=== PATIENT | male | born 1965 | race Caucasian/White ===

== ENCOUNTER 2018-02-20 08:12 | Emergency (ER) | payer OTHER ==
--- NOTE | 2018-02-20 08:50 | ERPHSYRPT ---
- History of Present Illness Time Seen by Provider: 02/20/18 08:35 Historian: patient Exam Limitations: no limitations Patient Subjective Stated Complaint: pt here chest pain off and on since tuesday after going to dentist, no pain at present time, no sob or cough Triage Nursing Assessment: pt walked in , resp easy, skin w/d/p, chest clear, no edema noted, Physician History: 52 y/o obese white male with htn and elevated cholesterol presents with intermittent chest pain described as pressue in a horizontal band of cp and into base of tongue for 6 days. he has no cp now. stopped at 0430 this am. no soa. no asa or ntg taken Timing/Duration: day(s) (6), intermittent Activities at Onset: none Quality: pressure Location: central Chest Pain Radiation: neck Severity of Pain-Max: mild Severity of Pain-Current: none Associated Symptoms: denies symptoms, No nausea, No vomiting, No palpitations, No heartburn, No abdominal pain, No shortness of breath, No cough Prior Chest Pain/Cardiac Workup: no prior cardiac workup Nitro Today/Relief: no nitro taken today Aspirin Treatment Today: no aspirin today, provided by ED Allergies/Adverse Reactions: No Known Drug Allergies Allergy (Unverified 07/10/14 23:07) Home Medications: Alprazolam 1 mg [Xanax 1 mg] 1 mg PO TID 02/20/18 [History] Cyclobenzaprine HCl 10 mg [Cyclobenzaprine 10 MG] 10 mg PO BID PRN [History] Esomeprazole Sodium [Nexium I.v] 40 mg PO DAILY 02/20/18 [History] Levothyroxine Sodium 88 Mcg [Synthroid 88 Mcg] 88 mcg PO DAILY 02/20/18 [ History] Lisinopril 10 mg [Zestril 10 MG] 10 mg PO DAILY 02/20/18 [History] Metoprolol Succinate 50 mg [Toprol Xl 50 MG] 50 mg PO BID 02/20/18 [ History] Naproxen 500 mg [Naprosyn 500 MG] 500 mg PO BIDPRN PRN 02/20/18 [History] Prazosin HCl [Minipress] 2 mg PO HS 02/20/18 [History] Quetiapine Fumarate [Seroquel] 50 mg PO DAILY 02/20/18 [History] Tamsulosin HCl 0.4 mg [Flomax 0.4 MG] 0.4 mg PO DAILY 02/20/18 [History] Hx Tetanus, Diphtheria Vaccination/Date Given: No Hx Influenza Vaccination/Date Given: Yes Hx Pneumococcal Vaccination/Date Given: No Immunizations Up to Date: No - Review of Systems Constitutional: No Symptoms Eyes: No Symptoms Ears, Nose, & Throat: No Symptoms Respiratory: No Symptoms Cardiac: Chest Pain Abdominal/Gastrointestinal: No Symptoms, No Abdominal Pain, No Nausea, No Vomiting, No Diarrhea Genitourinary Symptoms: No Symptoms, No Dysuria, No Frequency, No Hematuria Musculoskeletal: No Symptoms Skin: No Symptoms Neurological: No Symptoms Psychological: No Symptoms Endocrine: No Symptoms Hematologic/Lymphatic: No Symptoms Immunological/Allergic: No Symptoms All Other Systems: Reviewed and Negative - Past Medical History Pertinent Past Medical History: Yes Neurological History: No Pertinent History ENT History: No Pertinent History Cardiac History: Hypertension Respiratory History: No Pertinent History Endocrine Medical History: Hypothyroidism Musculoskeletal History: No Pertinent History GI Medical History: No Pertinent History History: Other Psycho-Social History: Anxiety, Depression, Panic Disorder Male Reproductive Disorders: No Pertinent History, Prostate Problems Other Medical History: SEE ABOVE - Past Surgical History Past Surgical History: Yes Neuro Surgical History: No Pertinent History Cardiac: No Pertinent History Respiratory: No Pertinent History Gastrointestinal: No Pertinent History Genitourinary: No Pertinent History Musculoskeletal: No Pertinent History Male Surgical History: No Pertinent History Other Surgical History: cyst from back - Social History Smoking Status: Former smoker Exposure to second hand smoke: No Drug Use: marijuana Patient Lives Alone: No - Nursing Vital Signs Nursing Vital Signs: Initial Vital Signs Temperature 97.2 F 02/20/18 08:14 Pulse Rate 81 02/20/18 08:14 Respiratory Rate 16 02/20/18 08:14 Blood Pressure 131/86 02/20/18 08:14 O2 Sat by Pulse Oximetry 99 02/20/18 08:14 Pain Scale Pain Intensity 0 - Physical Exam General Appearance: no apparent distress, alert, anxiety Eye Exam: PERRL/EOMI Ears, Nose, Throat Exam: normal ENT inspection, moist mucous membranes Neck Exam: normal inspection, non-tender, supple, full range of motion Respiratory Exam: normal breath sounds, chest tenderness, lungs clear, airway intact, No respiratory distress, No accessory muscle use, No rhonchi, No wheezing, No stridor Cardiovascular Exam: regular rate/rhythm, normal heart sounds, normal peripheral pulses Gastrointestinal/Abdomen Exam: soft, normal bowel sounds, No tenderness, No guarding, No rebound Rectal Exam: not done Back Exam: normal inspection, normal range of motion, No CVA tenderness, No vertebral tenderness Extremity Exam: normal inspection, normal range of motion Neurologic Exam: alert, oriented x 3, cooperative, senior product analyst II-XII nml as tested Skin Exam: normal color, warm, dry Lymphatic Exam: No adenopathy SpO2 Interpretation: normal SpO2: 99 Oxygen Delivery: Room Air - Course Nursing assessment & vital signs reviewed: Yes EKG Interpreted by Me: RATE (83), Sinus Rhythm, NORMAL AXIS, NORMAL INTERVALS, Non-specific ST Changes, Other (no comparison ekg) Ordered Tests: Active Orders 24 hr Category Date Time Status Digital Production Artist STAT Care 02/20/18 08:53 Active EKG-ER Only STAT Care 02/20/18 08:52 Active EKG-ER Only STAT Care 02/20/18 11:53 Active IV Insertion STAT Care 02/20/18 08:52 Active Pulse Oximetry (ED) STAT Care 02/20/18 08:52 Active CHEST 1 VIEW (PORTABLE) Stat Exams 02/20/18 08:53 Completed CHEST WITH CONTRAST [CT] Stat Exams 02/20/18 09:31 Completed CBC W DIFF Stat Lab 02/20/18 08:50 Completed CMP Stat Lab 02/20/18 08:50 Completed D-DIMER QUANTITATION Stat Lab 02/20/18 08:50 Completed NT PRO BNP Stat Lab 02/20/18 08:50 Completed PROTIME WITH INR Stat Lab 02/20/18 08:50 Completed TROPONIN Q3H Lab 02/20/18 08:50 Completed TROPONIN Q3H Lab 02/20/18 11:55 Completed TROPONIN Q3H Lab 02/20/18 15:00 Ordered TROPONIN Q3H Lab 02/20/18 18:00 Ordered TROPONIN Q3H Lab 02/20/18 21:00 Ordered Medication Summary Discontinued Medications Generic Name Dose Route Start Last Admin Trade Name Freq PRN Reason Stop Dose Admin Aspirin 324 mg 02/20/18 08:52 02/20/18 08:59 Baby Aspirin 81 Mg Chew PO 02/20/18 08:53 324 mg STAT ONE Administration Lab/Rad Data: Laboratory Result Diagrams 02/20/18 08:50 02/20/18 08:50 Laboratory Results 02/20/18 02/20/18 02/20/18 Range/Units 11:55 08:50 08:50 WBC (4.0-10.5) K/mm3 RBC (4.1-5.6) M/mm3 Hgb (12.5-18.0) gm/dl Hct (42-50) % MCV (78-100) fl MCH (26-32) pg MCHC (32-36) g/dl RDW (11.5-14.0) % Plt Count (150-450) K/mm3 MPV (6-9.5) fl Gran % (36.0-66.0) % Eos # (Auto) (0-0.5) Absolute Lymphs (auto) (1.0-4.6) Absolute Monos (auto) (0.0-1.3) Lymphocytes % (24.0-44.0) % Monocytes % (0.0-12.0) % Eosinophils % (0.00-5.0) % Basophils % (0.0-0.4) % Absolute Granulocytes (1.4-6.9) Basophils # (0-0.4) PT 12.8 (8.83-12.87) SECONDS INR 1.10 (0.8-3.0) D-Dimer 682 H* (215-500) ng/mL Sodium (137-145) mmol/L Potassium (3.5-5.1) mmol/L Chloride (98-107) mmol/L Carbon Dioxide (22-30) mmol/L Anion Gap (5-15) MEQ/L BUN (9-20) mg/dL Creatinine (0.66-1.25) mg/dL Estimated GFR ML/MIN Glucose (74-106) mg/dL Calcium (8.4-10.2) mg/dL Total Bilirubin (0.2-1.3) mg/dL AST (17-59) U/L ALT (0-50) U/L Alkaline Phosphatase (38-126) U/L Troponin I 0.032 0.035 H (0.000-0.034) ng/mL NT-Pro-B Natriuret Pep (0-900) pg/mL Serum Total Protein (6.3-8.2) g/dL Albumin (3.5-5.0) g/dL 02/20/18 02/20/18 Range/Units 08:50 08:50 WBC 9.9 (4.0-10.5) K/mm3 RBC 4.93 (4.1-5.6) M/mm3 Hgb 13.9 (12.5-18.0) gm/dl Hct 43.2 (42-50) % MCV 87.6 (78-100) fl MCH 28.2 (26-32) pg MCHC 32.2 (32-36) g/dl RDW 15.4 H (11.5-14.0) % Plt Count 237 (150-450) K/mm3 MPV 10.7 H (6-9.5) fl Gran % 67.3 H (36.0-66.0) % Eos # (Auto) 0.04 (0-0.5) Absolute Lymphs (auto) 2.50 (1.0-4.6) Absolute Monos (auto) 0.66 (0.0-1.3) Lymphocytes % 25.4 (24.0-44.0) % Monocytes % 6.7 (0.0-12.0) % Eosinophils % 0.4 (0.00-5.0) % Basophils % 0.2 (0.0-0.4) % Absolute Granulocytes 6.63 (1.4-6.9) Basophils # 0.02 (0-0.4) PT (8.83-12.87) SECONDS INR (0.8-3.0) D-Dimer (215-500) ng/mL Sodium 140 (137-145) mmol/L Potassium 4.6 (3.5-5.1) mmol/L Chloride 103 (98-107) mmol/L Carbon Dioxide 28 (22-30) mmol/L Anion Gap 14.1 (5-15) MEQ/L BUN 16 (9-20) mg/dL Creatinine 0.95 (0.66-1.25) mg/dL Estimated GFR > 60.0 ML/MIN Glucose 104 (74-106) mg/dL Calcium 9.8 (8.4-10.2) mg/dL Total Bilirubin 0.50 (0.2-1.3) mg/dL AST 16 L (17-59) U/L ALT 17 (0-50) U/L Alkaline Phosphatase 85 (38-126) U/L Troponin I (0.000-0.034) ng/mL NT-Pro-B Natriuret Pep 1900 H (0-900) pg/mL Serum Total Protein 8.2 (6.3-8.2) g/dL Albumin 4.6 (3.5-5.0) g/dL - Progress Progress: improved Air Movement: good Progress Note: 02/20/18 13:00 2nd EKG today- no change from prior ekg. hr 77, normal axis, nsr, no acute ischemic changes. pt has no cp. 02/20/18 13:01 ct chest- no pulm embolus. no acute process. 02/20/18 13:21 pt wants to go home. i spoke with dr. chahal, pts pcp, and i reviewed pts hx, condition, labs, ekg and xray results with him. dr. chahal feels pt can go home and follow up with [facility]. Blood Culture(s) Obtained: No Antibiotics given: No Counseled pt/family regarding: lab results, diagnosis, need for follow-up, rad results - Departure Time of Disposition: 13:22 Departure Disposition: Home Clinical Impression: Chest pain Condition: Stable Critical Care Time: No Referrals: MAMI AQUINO [ACTIVE STAFF] - Additional Instructions: take a daily aspirin. follow up with scheduled [facility] appointment. return to ED if symptoms recur. take all your medications as prescribed.
[2018-02-20] MEDS ORDERED: BABY ASPIRIN 81 MG CHEW PO ONE (08:52)
[2018-02-20 09:02] LABS: BASOPHIL % 0.2 % (0.0-0.4); Basophil (Absolute #) 0.02 (0-0.4); Eosinophil % 0.4 % (0.00-5.0); Eosinophil (Absolute #) 0.04 (0-0.5); Granulocytes % 67.3 % (36.0-66.0); Hematocrit 43.2 % (42-50); Hemoglobin 13.9 gm/dl (12.5-18.0); Lymphocytes % 25.4 % (24.0-44.0); Mean Cell Volume 87.6 fl (78-100); Mean Corpuscular Hemoglobin 28.2 pg (26-32); Mean Corpuscular Hgb Concent. 32.2 g/dl (32-36); Mean Platelet Volume 10.7 fl (6-9.5); Monocyte (Absolute #) 0.66 (0.0-1.3); Monocytes % 6.7 % (0.0-12.0); Platelet Count 237 K/mm3 (150-450); Red Blood Count 4.93 M/mm3 (4.1-5.6); Red Cell Distribution Width 15.4 % (11.5-14.0); White Blood Count 9.9 K/mm3 (4.0-10.5)
--- NOTE | 2018-02-20 09:14 | XRAY ---
Indication: Chest tightness. Comparison: None Portable chest demonstrates normal heart and lungs. Bony thorax intact with mild spinal degenerative changes.
[2018-02-20 09:17] LABS: INR 1.1 (0.8-3.0); PROTIME 12.8 SECONDS (8.83-12.87)
[2018-02-20 09:30] LABS: ALBUMIN 4.6 g/dL (3.5-5.0); ALKALINE PHOSPHATASE 85 U/L (38-126); ANION GAP 14.1 MEQ/L (5-15); BLOOD UREA NITROGEN 16 mg/dL (9-20); CHLORIDE 103 mmol/L (98-107); Calcium 9.8 mg/dL (8.4-10.2); Carbon Dioxide 28 mmol/L (22-30); Creatinine 1 0.95 mg/dL (0.66-1.25); Glucose 104 mg/dL (74-106); NT PRO BNP 1900 pg/mL (0-900); Potassium 4.6 mmol/L (3.5-5.1); SGOT/AST 16 U/L (17-59); SGPT/ALT 17 U/L (0-50); SODIUM 140 mmol/L (137-145); Total Protein 8.2 g/dL (6.3-8.2)
--- NOTE | 2018-02-20 10:15 | XRAY ---
Indication: Chest tightness. Elevated d-dimer. Multiple contiguous axial images obtained through the chest using 80 cc Isovue 370 contrast and PE protocol. Comparison: None There is good opacification of the pulmonary arteries to include the lobar and segmental branches. No filling defect or pulmonary embolus. Heart is not enlarged. Aorta is normal in course and caliber. A few small mediastinal lymph nodes, largest AP window measuring 1 x 1.7 cm. No pathologic mediastinal/hilar lymphadenopathy. Lungs are fully inflated. No suspicious pulmonary mass, infiltrate, or effusion. Bony thorax intact with mild degenerative changes throughout the spine. Limited upper abdomen demonstrates mild diffuse fatty liver. Impression: 1. Negative pulmonary embolus. 2. Remaining CT chest with contrast exam is negative. 3. Incidental fatty liver. CT DI 27.87
[2018-02-20 13:03] VITALS: O2SAT 99
[2018-02-20 13:45] VITALS: BP 130/71; PULSE 78
== END 2018-02-20 13:45 | disposition home or self-care (01) ==
LOC: ED 08:12
DX: R07.89 Other chest pain (principal); I10 Essential (primary) hypertension; E78.00 Pure hypercholesterolemia, unspecified; Z79.899 Other long term (current) drug therapy
CPT/HCPCS: 36000; 36415; 71045; 71260; 80053; 83880; 84484; 85025; 85379; 85610; 93005; 93041; 99284; A9270-GY